=== PATIENT | male | born 1960 | race Caucasian/White ===

== ENCOUNTER → 2016-03-26 | Outpatient (CLI) | payer BC ==
--- NOTE | 2016-03-26 17:06 | DX ---
Chest, PA and Lateral History: Chest tightness, history of lung cancer Comparison: None Findings: Moderately prominent lung volumes and diffuse mild bronchial wall thickening suggesting air ways disease. Lungs are clear, without infiltrate or consolidation. Heart size is relatively small, c onsistent with a large lung volumes. The pulmonary vascularity is normal. There is no adenopathy, pul monary nodule or mass lesion. There is no pleural effusion, pneumomediastinum or pneumothorax. Bones are unremarkable for age. There are no lytic or sclerotic osseous lesions. Impression: Consistent with airways disease. No evidence for recurrent or metastatic lung carcinoma
== END ==
LOC: FIMAGING 16:30
PROVIDERS: ATTEND Family Medicine
DX: R07.89 Other chest pain (principal); Z85.118 Personal history of other malignant neoplasm of bronchus and lung